=== PATIENT | male | born 2000 | race Caucasian/White ===

== ENCOUNTER 2018-09-06 10:07 | Emergency (ER) | payer OTHER ==
[~2018-09-06] VITALS: Ht 190.5 cm; Wt 188.1 kg
--- NOTE | 2018-09-06 10:54 | REP ---
RIGHT FINGERS, FOUR VIEWS: HISTORY: Injury. There is a comminuted fracture of the tuft of the distal phalange of the 3rd digit. There is no dislocation. The joint spaces are normal in appearance. IMPRESSION: Comminuted fracture of the 3rd distal phalange. Electronically Signed by Abel Alex MD 09/06/2018 10:56 A
[2018-09-06] MEDS ORDERED: LIDOCAINE 2% MDV 20 ML VIAL SC ONE (11:15)
[2018-09-06] MEDS ORDERED: BUPIVACAINE HCL 0.5% 10 ML VIAL SC ONE (13:30)
[2018-09-06] MEDS ORDERED: CEPHALEXIN 500 MG CAP PO ONE (14:30)
[2018-09-06] MEDS ORDERED: KEFL500C17 PO (14:39)
[2018-09-06 15:03] VITALS: BP 136/74
== END 2018-09-06 15:04 | disposition home or self-care (01) ==
LOC: M ED 10:07
DX: S62.632B Displaced fracture of distal phalanx of right middle finger, initial encounter for open fracture (principal); W22.8XXA Striking against or struck by other objects, initial encounter; Y92.89 Other specified places as the place of occurrence of the external cause; Z77.098 Contact with and (suspected) exposure to other hazardous, chiefly nonmedicinal, chemicals